=== PATIENT | male | born 1965 | race Caucasian/White ===

== ENCOUNTER 2020-08-11 03:36 | Emergency (ER) | payer OTHER ==
[~2020-08-11] VITALS: Ht 182.9 cm; Wt 118.8 kg
[2020-08-11 03:49] VITALS: Ht 182.9 cm; Wt 118.8 kg
[2020-08-11] MEDS ORDERED: ACETAMINOPHEN-H1 TA1 PO (05:39)
[2020-08-11 06:53] VITALS: BP 135/92
[2020-08-11] MEDS ORDERED: HYDROCODONE BIT1 T51 PO (15:47)
== END 2020-08-11 06:53 | disposition home or self-care (01) ==
LOC: ED 03:36
DX: S61.411A Laceration without foreign body of right hand, initial encounter (principal); S46.911A Strain of unspecified muscle, fascia and tendon at shoulder and upper arm level, right arm, initial encounter; S00.83XA Contusion of other part of head, initial encounter; I10 Essential (primary) hypertension; E78.00 Pure hypercholesterolemia, unspecified; J44.9 Chronic obstructive pulmonary disease, unspecified; F17.210 Nicotine dependence, cigarettes, uncomplicated; Z88.0 Allergy status to penicillin; Z88.8 Allergy status to other drugs, medicaments and biological substances; W19.XXXA Unspecified fall, initial encounter; Y93.89 Activity, other specified; Y99.8 Other external cause status; Y92.89 Other specified places as the place of occurrence of the external cause
CPT/HCPCS: 90715; 99406